=== PATIENT | male | born 1955 | race Caucasian/White ===

== ENCOUNTER 2022-03-04 05:40 | Outpatient (CLI) | payer MEDICARE, OTHER ==
[~2022-03-04] VITALS: Ht 185.5 cm; Wt 95.4 kg
[2022-03-04] MEDS ORDERED: LOVA40TA2 PO (09:58)
[2022-03-04] MEDS ORDERED: HYDR-3923 PO (09:58)
[2022-03-04] MEDS ORDERED: CYCL10TA25 PO (09:58)
[2022-03-04] MEDS ORDERED: AMLO-250 PO (09:58)
[2022-03-04] MEDS ORDERED: LEVO25CA4 PO (09:58)
[2022-03-04] MEDS ORDERED: GABA-486 PO (09:58)
[2022-03-04] MEDS ORDERED: MELO15TA39 PO (09:58)
[2022-03-04] MEDS ORDERED: SPIR25TA PO (09:58)
[2022-03-04] MEDS ORDERED: METO-333 PO (09:58)
[2022-03-04] MEDS ORDERED: LORA-404 PO (09:58)
[2022-03-04] MEDS ORDERED: BUTA-259 PO (10:36)
[2022-03-04] MEDS ORDERED: TRM50T PO (10:36)
[2022-03-04] MEDS ORDERED: METF-397 PO (10:46)
[2022-03-04] MEDS ORDERED: ASPI-999 PO (10:46)
[2022-03-04] MEDS ORDERED: ATOR20TA66 PO (10:46)
[2022-03-04] MEDS ORDERED: GLIP10TA24 PO (10:46)
[2022-03-04] MEDS ORDERED: LISI1TAB46 PO (10:46)
[2022-03-04] MEDS ORDERED: FINA5TAB6 PO (10:46)
== END 2022-03-04 10:53 | disposition home or self-care (01) ==
LOC: PREOP 05:40
PROVIDERS: ATTEND Specialist
DX: Z01.818 Encounter for other preprocedural examination (principal)

== ENCOUNTER 2022-03-07 06:34 | Day surgery (SDC) | payer MEDICARE, OTHER ==
[~2022-03-07] VITALS: Ht 182.8 cm; Wt 95.4 kg
[~2022-03-07 06:34] MED LIST: AMLO-250 PO; ASPI-999 PO; ATOR20TA66 PO; CYCL10TA25 PO; FINA5TAB6 PO; GABA-486 PO; GLIP10TA24 PO; HYDR-3923 PO; LEVO25CA4 PO; LISI1TAB46 PO; LORA-404 PO; LOVA40TA2 PO; MELO15TA39 PO; METF-397 PO; METO-333 PO; SPIR25TA PO; TRM50T PO; [UNRECOGNIZED DRUG - CODE] PO
[2022-03-07 06:40] VITALS: BP 150/93
[2022-03-07] MEDS: TETRACAINE 0.5% OPHTH SOLN 4 ML BTL (SINGLE DOSE ONLY) OU PRN ×4 (06:56→07:11)
[2022-03-07] MEDS: PHENYLEPHRINE 10% OPHTH (NEO-SYN) 5 ML BTL OU SCH ×3 (07:00→07:10)
[2022-03-07] MEDS ORDERED: POVIDONE (BETADINE) OPHTH SOLN 5% 30 ML OP ONE (07:00)
[2022-03-07] MEDS ORDERED: TIMOLOL 0.5% (CATARACTS) 0.3 ML BTL OU PRN (07:00)
[2022-03-07] MEDS ORDERED: MOXIFLOXACIN OPHTH SOLN 5 MG/ML 0.3 ML SYRINGE OP ONE (07:00)
[2022-03-07] MEDS: TROPICAMIDE 1% OPH SOLN (MYDRIACYL) 15 ML BTL OP SCH ×3 (07:01→07:10)
[2022-03-07] MEDS ORDERED: MIDAZOLAM 2 MG/2 ML (VERSED) VIAL ONE (07:33)
--- NOTE | 2022-03-07 07:42 | Ophthalmologist Pre-Op Note ---
Pre-Operative Progress Note H&P Reviewed The H&P was reviewed, patient examined and no changes noted. Date H&P Reviewed: Mar 07, 2022 Time H&P Reviewed: 07:42 Pre-Op Dx Cataract, Right Eye MAKAYLA LIM MD Mar 07, 2022 07:42
--- NOTE | 2022-03-07 08:05 | Ophthalmology Operative Report ---
Cataract removal/placement IOL PREOPERATIVE DIAGNOSIS: Cataract Right Eye POSTOPERATIVE DIAGNOSIS: Cataract Right Eye PROCEDURE: Cataract removal and placement of posterior chamber implant, right eye SURGEON: Ronald Lim ANESTHESIA: Topical with sedation COMPLICATIONS: None ESTIMATED BLOOD LOSS: Minimal DESCRIPTION OF PROCEDURE: After proper informed consent was obtained, the patient, a 66 male, was taken to the Operating Room and the right eye was anesthetized with tetracaine. The right eye was then prepped and draped in the usual manner. A wire lid speculum was placed. A paracentesis was made at the left hand position. Preservative free lidocaine was injected into the anterior chamber followed by viscoelastic. A clear corneal incision was made in the temporal position. A capsulorrhexis was preformed and the central nuclear and cortical material were removed. The posterior capsule was polished and Jason 22.0 AU00T0 IOL was placed into the capsular bag. The residual viscoelastic was aspirated and balanced saline solution was injected into the anterior chamber. Moxifloxacin was injected into the anterior chamber. The wound was checked and found to be water tight. The patient tolerated the procedure well without complications. RONALD LIM MD Mar 07, 2022 08:04
[2022-03-07 08:12] VITALS: BP 142/76
[2022-03-07] MEDS ORDERED: acetaZOLAMIDE ER 500 MG CAP (DIAMOX SEQUELS) PO ONE (09:00)
--- NOTE | 2022-03-07 12:46 | Anesthesia-General Post-Op ---
MAC Patient Condition Mental Status/LOC: Same as Preop Cardiovascular: Satisfactory Nausea/Vomiting: Absent Respiratory: Satisfactory Pain: Controlled Complications: Absent Post Op Complications Complications None Follow Up Care/Instructions Patient Instructions None needed. Anesthesiology Discharge Order Discharge Order Patient is doing well, no complaints, stable vital signs, no apparent adverse anesthesia problems. No complications reported per nursing. THERESA CARY CRNA Mar 07, 2022 12:46
== END 2022-03-07 08:14 | disposition home or self-care (01) ==
LOC: SDC 06:34
PROVIDERS: ATTEND Specialist
DX: H26.9 Unspecified cataract (principal); E11.9 Type 2 diabetes mellitus without complications; Z79.84 Long term (current) use of oral hypoglycemic drugs
CPT/HCPCS: 66984; 82947; V2632

== ENCOUNTER 2022-03-13 06:18 | Outpatient (CLI) | payer MEDICARE, OTHER ==
[~2022-03-13] VITALS: Ht 182.8 cm; Wt 95.4 kg
== END 2022-03-18 15:18 | disposition home or self-care (01) ==
LOC: PREOP 06:18
PROVIDERS: ATTEND Specialist
DX: Z01.818 Encounter for other preprocedural examination (principal); H25.12 Age-related nuclear cataract, left eye

== ENCOUNTER → 2022-03-21 | Day surgery (SDC) | payer MEDICARE, OTHER ==
[~2022-03-21] VITALS: Ht 182.8 cm; Wt 95.4 kg
[~2022-03-21] MED LIST changes: +MIDAZOLAM 2 MG/2 ML (VERSED) VIAL ONE; +MOXIFLOXACIN OPHTH SOLN 5 MG/ML 0.3 ML SYRINGE OP ONE; +POVIDONE (BETADINE) OPHTH SOLN 5% 30 ML OP ONE; +TIMOLOL 0.5% (CATARACTS) 0.3 ML BTL OU PRN; +acetaZOLAMIDE ER 500 MG CAP (DIAMOX SEQUELS) PO ONE
[2022-03-21] MEDS: TETRACAINE 0.5% OPHTH SOLN 4 ML BTL (SINGLE DOSE ONLY) OU PRN ×4 (07:11→07:40)
[2022-03-21 07:17] VITALS: BP 150/72
[2022-03-21] MEDS: TROPICAMIDE 1% OPH SOLN (MYDRIACYL) 15 ML BTL OP SCH ×3 (07:19→07:40)
[2022-03-21] MEDS: PHENYLEPHRINE 10% OPHTH (NEO-SYN) 5 ML BTL OU SCH ×3 (07:19→07:40)
--- NOTE | 2022-03-21 08:34 | Ophthalmology Operative Report ---
Cataract removal/placement IOL PREOPERATIVE DIAGNOSIS: Cataract Left Eye POSTOPERATIVE DIAGNOSIS: Cataract Left Eye PROCEDURE: Cataract removal and placement of posterior chamber implant, left eye SURGEON: Ronald Lim ANESTHESIA: Topical with sedation COMPLICATIONS: None ESTIMATED BLOOD LOSS: Minimal DESCRIPTION OF PROCEDURE: After proper informed consent was obtained, the patient, a 66 male, was taken to the Operating Room and the left eye was anesthetized with tetracaine. The left eye was then prepped and draped in the usual manner. A wire lid speculum was placed. A paracentesis was made at the left hand position. Preservative free lidocaine was injected into the anterior chamber followed by viscoelastic. A clear corneal incision was made in the temporal position. A capsulorrhexis was preformed and the central nuclear and cortical material were removed. The posterior capsule was polished and an Jason 21.5 AU00T0 was placed into the capsular bag. The residual viscoelastic was aspirated and balanced saline solution was injected into the anterior chamber. Moxifloxacin was injected into the anterior chamber. The wound was checked and found to be water tight. The patient tolerated the procedure well without complications. RONALD LIM MD Mar 21, 2022 08:34
--- NOTE | 2022-03-21 08:34 | Ophthalmologist Pre-Op Note ---
Pre-Operative Progress Note H&P Reviewed The H&P was reviewed, patient examined and no changes noted. Date H&P Reviewed: Mar 21, 2022 Time H&P Reviewed: 08:14 Pre-Op Dx Cataract, Left Eye MAKAYLA LIM MD Mar 21, 2022 08:34
[2022-03-21 08:53] VITALS: BP 147/83
--- NOTE | 2022-03-21 13:49 | Anesthesia-General Post-Op ---
MAC Patient Condition Mental Status/LOC: Same as Preop Cardiovascular: Satisfactory Nausea/Vomiting: Absent Respiratory: Satisfactory Pain: Controlled Complications: Absent Post Op Complications Complications None Follow Up Care/Instructions Patient Instructions None needed. Anesthesiology Discharge Order Discharge Order Patient is doing well, no complaints, stable vital signs, no apparent adverse anesthesia problems. No complications reported per nursing. VERO MATT CRNA Mar 21, 2022 13:49
== END | disposition home or self-care (01) ==
LOC: SDC 06:57
PROVIDERS: ATTEND Specialist
DX: E11.36 Type 2 diabetes mellitus with diabetic cataract (principal); H25.9 Unspecified age-related cataract; Z79.84 Long term (current) use of oral hypoglycemic drugs; Z85.820 Personal history of malignant melanoma of skin
CPT/HCPCS: 66984; 82947; V2632